=== PATIENT | male | born 1980 | race Two or more races ===

== ENCOUNTER 2021-09-23 18:29 | Emergency (ER) | payer OTHER, SELFPAY | END 2021-09-23 19:08 | disposition left against medical advice (07) | PROVIDERS: Emergency Provider Emergency Medicine | DX: N20.0 Calculus of kidney (principal) ==

== ENCOUNTER 2021-11-11 09:14 | Outpatient (REF) | payer OTHER, SELFPAY ==
[2021-11-11 09:43] LABS: MANUAL DIFF FLAG NO
[2021-11-11 10:17] LABS: Basophils Absolute Auto 0.1 X10*3/uL (0.0-0.2); Basophils Percent Auto 0.6 % (0-2); Eosinophils Absolute Auto 0.2 X10*3/uL (0.0-0.4); Eosinophils Percent Auto 2.2 % (0-4); Hematocrit 50.6 % (42.0-52.0); Hemoglobin 15.7 g/dl (14.0-18.0); Imm Gran Abs Auto 0.07 X10*3/uL (0.00-0.03); Imm Gran Pct Auto 0.8 % (0.0-0.4); Lymphocytes Absolute Auto 1.9 X10*3/uL (1.2-4.9); Lymphocytes Percent Auto 22.2 % (20-40); Mean Corpuscular Hemoglobin 25.9 pg (27.0-33.0); Mean Corpuscular Volume 83.4 fL (80.0-98.0); Mean Platelet Volume 10.9 fL (9.4-12.4); Monocytes Absolute Auto 0.4 X10*3/uL (0.1-1.2); Monocytes Percent Auto 5.2 % (2-11); Neutrophils Absolute Auto 5.8 x10*3/uL (2.0-8.3); Platelet Count 225 X10*3/uL (160-400); Red Blood Count 6.07 X10*6/uL (4.60-5.80); Red Cell Distribution Width 14.2 % (11.0-16.0); White Blood Count 8.5 X10*3/uL (4.8-10.8)
[2021-11-11 10:37] LABS: Estimated Average Glucose 309 mg/dL; Hemoglobin A1c % 12.4 %
[2021-11-11 10:46] LABS: Alanine Aminotransferase 68 U/L (0-40); Albumin Level 3.8 g/dL (3.5-5.0); Alkaline Phosphatase 120 U/L (39-117); Anion Gap 11 (12-20); Aspartate Amino Transferase 33 U/L (5-37); Bilirubin Total 0.5 mg/dL (0.0-1.0); Blood Urea Nitrogen 15 mg/dL (9-16); Calcium 9.5 mg/dL (8.4-10.2); Carbon Dioxide 27 mmol/L (22-29); Chloride 101 mmol/L (96-108); Cholesterol 138 mg/dL; Estimated Glomerular Filt Rate > 60; Glucose Random 293 mg/dL (60-115); HDL Cholesterol 38 mg/dL; LDL Cholesterol Calculated 75 mg/dl; Potassium 4.8 mmol/L (3.3-5.1); Sodium 134 mmol/L (135-145); Total Protein 7.3 g/dL (6.5-8.0); Triglycerides 126 mg/dL
[2021-11-11 12:41] LABS: Creatinine Urine 81.42 mg/dL; Microalbum/Creatinine Ratio Ur 18.4 ug/mg cr
== END 2021-11-11 09:15 | disposition home or self-care (01) ==
LOC: HO.LAB 09:14
PROVIDERS: PCP Internal Medicine; Visit Provider Internal Medicine
DX: Z00.01 Encounter for general adult medical examination with abnormal findings (principal); B37.42 Candidal balanitis; E11.65 Type 2 diabetes mellitus with hyperglycemia; E66.8 Other obesity; G47.33 Obstructive sleep apnea (adult) (pediatric); I10 Essential (primary) hypertension; N20.0 Calculus of kidney
CPT/HCPCS: 36415; 80053; 80061; 82043; 83036; 84443; 85025

== ENCOUNTER 2022-03-03 13:59 | Outpatient (REF) | payer OTHER, SELFPAY ==
--- NOTE | ~2022-03-03 | US_ITS ---
EXAMINATION: US VENOUS ULTRASOUND WITH DOPPLER LOWER EXTREMITY, RIGHT CLINICAL INFORMATION: Right lower extremity edema COMPARISON: None TECHNIQUE: Ultrasound of the deep veins is performed from the hip to the calf with compression sonography and color and pulse Doppler assessment. Spectral analysis with color-flow imaging is performed. FINDINGS: The study is somewhat limited as the GSD could not be seen and color flow in the profunda femoris was difficult to demonstrate but compression was normal. The peroneal veins were also not seen. Exam is otherwise normal with normal venous compression and respiratory variation and augmented flow. The visualized common femoral vein, superficial femoral vein, profunda femoral vein, popliteal vein, and the trifurcation region shows no evidence of deep venous thrombosis. There is no significant popliteal fossa cyst. If the patient's symptoms persist, followup ultrasound in 5 days 7 days might be of value to exclude proximal propagation from a non-visualized calf vein. US/US venous duplex LE RT IMPRESSION: Limited study as described above, but there is no evidence of DVT demonstrated in the right lower extremity.
[2022-03-03 16:15] LABS: Estimated Average Glucose 223 mg/dL; Hemoglobin A1c % 9.4 %
[2022-03-03 16:33] LABS: Alanine Aminotransferase 43 U/L (0-40); Albumin Level 3.8 g/dL (3.5-5.0); Alkaline Phosphatase 87 U/L (39-117); Anion Gap 15 (12-20); Aspartate Amino Transferase 28 U/L (5-37); Bilirubin Total 0.6 mg/dL (0.0-1.0); Blood Urea Nitrogen 11 mg/dL (9-16); Calcium 9.1 mg/dL (8.4-10.2); Carbon Dioxide 26 mmol/L (22-29); Chloride 101 mmol/L (96-108); Estimated Glomerular Filt Rate > 60; Glucose Random 165 mg/dL (60-115); Potassium 4.5 mmol/L (3.3-5.1); Sodium 137 mmol/L (135-145); Total Protein 7.4 g/dL (6.5-8.0)
== END 2022-03-03 14:00 | disposition home or self-care (01) ==
LOC: HO.US 13:59
PROVIDERS: PCP Internal Medicine; Visit Provider Internal Medicine
DX: R60.0 Localized edema (principal); E11.65 Type 2 diabetes mellitus with hyperglycemia
CPT/HCPCS: 36415; 80053; 83036; 93971

== ENCOUNTER 2022-06-09 14:11 | Outpatient (REF) | payer OTHER, SELFPAY ==
[2022-06-09 15:00] LABS: Estimated Average Glucose 157 mg/dL; Hemoglobin A1c % 7.1 %
[2022-06-09 15:01] LABS: Alanine Aminotransferase 30 U/L (0-40); Alkaline Phosphatase 81 U/L (39-117); Anion Gap 15 (12-20); Aspartate Amino Transferase 19 U/L (5-37); Bilirubin Total 0.4 mg/dL (0.0-1.0); Blood Urea Nitrogen 18 mg/dL (9-16); Carbon Dioxide 23 mmol/L (22-29); Chloride 105 mmol/L (96-108); Estimated Glomerular Filt Rate > 60; Glucose Random 126 mg/dL (60-115); Potassium 4.6 mmol/L (3.3-5.1); Sodium 138 mmol/L (135-145); Total Protein 7.5 g/dL (6.5-8.0)
== END 2022-06-09 14:12 | disposition home or self-care (01) ==
LOC: HO.LAB 14:11
PROVIDERS: PCP Internal Medicine; Visit Provider Internal Medicine
DX: E11.65 Type 2 diabetes mellitus with hyperglycemia (principal); G47.33 Obstructive sleep apnea (adult) (pediatric); I10 Essential (primary) hypertension
CPT/HCPCS: 36415; 80053; 83036

== ENCOUNTER 2022-10-09 14:32 | Outpatient (REF) | payer OTHER, SELFPAY ==
[2022-10-09 15:50] LABS: Estimated Average Glucose 169 mg/dL; Hemoglobin A1c % 7.5 %
[2022-10-09 16:18] LABS: Alanine Aminotransferase 25 U/L (0-40); Alkaline Phosphatase 92 U/L (39-117); Anion Gap 15 (12-20); Aspartate Amino Transferase 19 U/L (5-37); Bilirubin Total 0.4 mg/dL (0.0-1.0); Blood Urea Nitrogen 18 mg/dL (9-16); Calcium 9.8 mg/dL (8.4-10.2); Carbon Dioxide 25 mmol/L (22-29); Chloride 102 mmol/L (96-108); Estimated Glomerular Filt Rate > 60; Glucose Random 128 mg/dL (60-115); Potassium 4.6 mmol/L (3.3-5.1); Sodium 137 mmol/L (135-145); Total Protein 7.4 g/dL (6.5-8.0)
== END 2022-10-09 14:33 | disposition home or self-care (01) ==
LOC: HO.LAB 14:32
PROVIDERS: PCP Internal Medicine; Visit Provider Internal Medicine
DX: E11.65 Type 2 diabetes mellitus with hyperglycemia (principal); F32.2 Major depressive disorder, single episode, severe without psychotic features; G47.33 Obstructive sleep apnea (adult) (pediatric); I10 Essential (primary) hypertension; R25.2 Cramp and spasm
CPT/HCPCS: 36415; 80053; 83036

== ENCOUNTER 2022-11-03 11:20 | Outpatient (REF) | payer OTHER, SELFPAY | END 2022-11-03 11:21 | disposition home or self-care (01) | LOC: HO.HOSX 11:20 | PROVIDERS: Visit Provider Orthopaedic Surgery | DX: Z13.89 Encounter for screening for other disorder (principal) ==

== ENCOUNTER 2023-01-30 09:38 | Outpatient (REF) | payer OTHER, SELFPAY ==
[2023-01-30 10:46] LABS: Estimated Average Glucose 186 mg/dL; Hemoglobin A1c % 8.1 %
[2023-01-30 10:47] LABS: Alanine Aminotransferase 34 U/L (0-40); Albumin Level 3.9 g/dL (3.5-5.0); Alkaline Phosphatase 98 U/L (39-117); Anion Gap 15 (12-20); Aspartate Amino Transferase 16 U/L (5-37); Bilirubin Total 0.4 mg/dL (0.0-1.0); Blood Urea Nitrogen 17 mg/dL (9-16); Carbon Dioxide 23 mmol/L (22-29); Chloride 106 mmol/L (96-108); Estimated Glomerular Filt Rate > 60; Glucose Random 181 mg/dL (60-115); Potassium 4.5 mmol/L (3.3-5.1); Sodium 139 mmol/L (135-145); Total Protein 7.2 g/dL (6.5-8.0)
[2023-01-30 12:32] LABS: CT PCR NOT DETECTED (Not Detect.); NG PCR NOT DETECTED (Not Detect.)
== END 2023-01-30 09:39 | disposition home or self-care (01) ==
LOC: HO.LAB 09:38
PROVIDERS: PCP Internal Medicine; Visit Provider Internal Medicine
DX: E11.65 Type 2 diabetes mellitus with hyperglycemia (principal); F33.41 Major depressive disorder, recurrent, in partial remission; G47.33 Obstructive sleep apnea (adult) (pediatric); I10 Essential (primary) hypertension; Z20.2 Contact with and (suspected) exposure to infections with a predominantly sexual mode of transmission
CPT/HCPCS: 0353U; 80053; 83036

== ENCOUNTER 2023-05-11 10:42 | Outpatient (REF) | payer OTHER, SELFPAY ==
[2023-05-11 13:56] LABS: Estimated Average Glucose 235 mg/dL; Hemoglobin A1c % 9.8 %
[2023-05-11 14:37] LABS: Creatinine Urine 172.19 mg/dL; Microalbum/Creatinine Ratio Ur 33.1 ug/mg cr
[2023-05-12 02:35] LABS: Alanine Aminotransferase 51 U/L (0-40); Alkaline Phosphatase 112 U/L (39-117); Anion Gap 16 (12-20); Aspartate Amino Transferase 23 U/L (5-37); Bilirubin Total 0.3 mg/dL (0.0-1.0); Blood Urea Nitrogen 14 mg/dL (9-16); Calcium 9.3 mg/dL (8.4-10.2); Carbon Dioxide 24 mmol/L (22-29); Chloride 102 mmol/L (96-108); Cholesterol 132 mg/dL; Estimated Glomerular Filt Rate > 60; Glucose Random 262 mg/dL (60-115); HDL Cholesterol 37 mg/dL; LDL Cholesterol Calculated 59 mg/dl; Potassium 4.3 mmol/L (3.3-5.1); Sodium 138 mmol/L (135-145); Thyroid Stimulating Hormone 3.56 uIU/mL (0.32-4.0); Total Protein 7.9 g/dL (6.5-8.0); Triglycerides 183 mg/dL
== END 2023-05-11 10:43 | disposition home or self-care (01) ==
LOC: HO.LAB 10:42
PROVIDERS: PCP Internal Medicine; Visit Provider Internal Medicine
DX: Z00.01 Encounter for general adult medical examination with abnormal findings (principal); E11.65 Type 2 diabetes mellitus with hyperglycemia; F32.5 Major depressive disorder, single episode, in full remission; G47.33 Obstructive sleep apnea (adult) (pediatric)
CPT/HCPCS: 36415; 80053; 80061; 82043; 83036; 84443

== ENCOUNTER 2023-08-10 11:24 | Outpatient (REF) | payer OTHER, SELFPAY ==
[2023-08-10 13:32] LABS: Alanine Aminotransferase 35 U/L (0-40); Albumin Level 3.8 g/dL (3.5-5.0); Alkaline Phosphatase 98 U/L (39-117); Anion Gap 12 (12-20); Aspartate Amino Transferase 18 U/L (5-37); Bilirubin Total 0.4 mg/dL (0.0-1.0); Blood Urea Nitrogen 16 mg/dL (9-16); Calcium 9.2 mg/dL (8.4-10.2); Carbon Dioxide 28 mmol/L (22-29); Chloride 101 mmol/L (96-108); Estimated Glomerular Filt Rate > 60; Glucose Random 307 mg/dL (60-115); Potassium 4.6 mmol/L (3.3-5.1); Sodium 136 mmol/L (135-145); Total Protein 7.5 g/dL (6.5-8.0)
[2023-08-10 13:42] LABS: Estimated Average Glucose 252 mg/dL; Hemoglobin A1c % 10.4 % (<6.0)
== END 2023-08-10 11:25 | disposition home or self-care (01) ==
LOC: HO.10HDL 11:24
PROVIDERS: Visit Provider Internal Medicine
DX: E11.65 Type 2 diabetes mellitus with hyperglycemia (principal); B37.49 Other urogenital candidiasis; I10 Essential (primary) hypertension; R74.01 Elevation of levels of liver transaminase levels; R80.8 Other proteinuria; Z91.148 Patient's other noncompliance with medication regimen for other reason
CPT/HCPCS: 36415; 80053; 83036

== ENCOUNTER 2024-03-28 16:25 | Outpatient (REF) | payer OTHER, SELFPAY ==
[2024-03-28 16:41] LABS: MANUAL DIFF FLAG NO
[2024-03-28 17:22] LABS: Basophils Absolute Auto 0.1 X10*3/uL (0.0-0.2); Basophils Percent Auto 0.7 % (0-2); Eosinophils Absolute Auto 0.3 X10*3/uL (0.0-0.4); Eosinophils Percent Auto 2.2 % (0-4); Hematocrit 50.3 % (42.0-52.0); Hemoglobin 16.1 g/dl (14.0-18.0); Imm Gran Abs Auto 0.12 X10*3/uL (0.00-0.03); Imm Gran Pct Auto 1.1 % (0.0-0.4); Lymphocytes Absolute Auto 3.2 X10*3/uL (1.2-4.9); Lymphocytes Percent Auto 28.9 % (20-40); Mean Corpuscular Hemoglobin 26.3 pg (27.0-33.0); Mean Corpuscular Volume 82.2 fL (80.0-98.0); Mean Platelet Volume 11.5 fL (9.4-12.4); Monocytes Absolute Auto 0.5 X10*3/uL (0.1-1.2); Neutrophils Absolute Auto 7.1 x10*3/uL (2.0-8.3); Neutrophils Percent Auto 63.1 % (45-73); Platelet Count 247 X10*3/uL (160-400); Red Blood Count 6.12 X10*6/uL (4.60-5.80); Red Cell Distribution Width 13.7 % (11.0-16.0); White Blood Count 11.2 X10*3/uL (4.8-10.8)
[2024-03-28 18:01] LABS: Creatinine Urine 62.33 mg/dL; Microalbum/Creatinine Ratio Ur 11.2 ug/mg cr (<30)
[2024-03-28 18:02] LABS: Alanine Aminotransferase 50 U/L (0-40); Albumin Level 4.1 g/dL (3.5-5.0); Alkaline Phosphatase 111 U/L (39-117); Anion Gap 13 (12-20); Aspartate Amino Transferase 30 U/L (5-37); Bilirubin Total 0.3 mg/dL (0.0-1.0); Blood Urea Nitrogen 18 mg/dL (9-16); Calcium 10.3 mg/dL (8.4-10.2); Carbon Dioxide 29 mmol/L (22-29); Chloride 99 mmol/L (96-108); Cholesterol 133 mg/dL (<200); Estimated Glomerular Filt Rate > 60; Glucose Random 323 mg/dL (60-115); HDL Cholesterol 36 mg/dL (>40); LDL Cholesterol Calculated 36 mg/dL (<100); Potassium 4.4 mmol/L (3.3-5.1); Sodium 137 mmol/L (135-145); Triglycerides 308 mg/dL (<150)
[2024-03-29 06:26] LABS: Estimated Average Glucose 315 mg/dL; Hemoglobin A1c % 12.6 % (<6.0)
== END 2024-03-28 16:26 | disposition home or self-care (01) ==
LOC: HO.LAB 16:25
PROVIDERS: PCP Internal Medicine; Visit Provider Internal Medicine
DX: E11.65 Type 2 diabetes mellitus with hyperglycemia (principal); E78.00 Pure hypercholesterolemia, unspecified; F32.9 Major depressive disorder, single episode, unspecified; G47.33 Obstructive sleep apnea (adult) (pediatric); I10 Essential (primary) hypertension; R74.01 Elevation of levels of liver transaminase levels
CPT/HCPCS: 36415; 80053; 80061; 82043; 82570; 83036; 85025

== ENCOUNTER 2024-08-10 15:23 | Outpatient (REF) | payer OTHER, SELFPAY ==
[2024-08-10 16:12] LABS: Estimated Average Glucose 301 mg/dL; Hemoglobin A1C 450.7401 umol/L; Hemoglobin A1c % 12.1 % (<6.0); Total Hemoglobin (HGBA1C) 4141.6833 umol/L
[2024-08-10 17:05] LABS: Alanine Aminotransferase 44 U/L (0-40); Albumin Level 3.9 g/dL (3.5-5.0); Alkaline Phosphatase 136 U/L (39-117); Anion Gap 14 (12-20); Aspartate Amino Transferase 24 U/L (5-37); Bilirubin Total 0.2 mg/dL (0.0-1.0); Blood Urea Nitrogen 17 mg/dL (9-16); Calcium 9.9 mg/dL (8.4-10.2); Carbon Dioxide 26 mmol/L (22-29); Chloride 100 mmol/L (96-108); Estimated Glomerular Filt Rate > 60; Glucose Random 412 mg/dL (60-115); Potassium 4.2 mmol/L (3.3-5.1); Sodium 136 mmol/L (135-145); Total Protein 7.6 g/dL (6.5-8.0)
== END 2024-08-10 15:24 | disposition home or self-care (01) ==
LOC: HO.LAB 15:23
PROVIDERS: PCP Internal Medicine; Visit Provider Internal Medicine
DX: E11.65 Type 2 diabetes mellitus with hyperglycemia (principal); E66.01 Morbid (severe) obesity due to excess calories; G47.33 Obstructive sleep apnea (adult) (pediatric); I10 Essential (primary) hypertension
CPT/HCPCS: 36415; 80053; 83036

== ENCOUNTER 2024-11-17 16:39 | Outpatient (REF) | payer OTHER, SELFPAY ==
--- OUTSIDE RECORDS SUMMARY | 2024-11-17 16:53 | XMS_ITS | Clinical Summary ---
Author Organization [facility] Address [address] [place] [address] Care Team Providers Care Traveling Operator Name Role Phone Blanca Cordon PA-C Primary Care Provider [phone] Source Comments PLEASE NOTE, if this patient is a minor, it may be UNLAWFUL to discuss sensitive information that is contained in these records (such as FAMILY PLANNING, MENTAL HEALTH or SUBSTANCE ABUSE) with the minor patient's parent or other person without the patient's specific authorization.[facility] Allergies Active Allergy Reactions Criticality Noted Date Comments Aspirin 06/14/2015 ANGIOEDEMA Medications atenolol (TENORMIN) 25 mg tabletIndicatio ns:hypertension Take 25 mg by mouth once daily. Indications: Hypertension Active COMP.Jarrod COPELAND LONG,X-LRG (COMPRESSION STOCKING)Indica tions:Varicose vein Dx: varicose veins bilat with dermatitis and edema. Use during the day. Remove at night. Pressure 15-20mHg 2 Each 2 5 Active Active Problems Problem Noted Date Diagnosed Date Obesity 06/14/2015 Overview (06/14/2015): BMI 71.84 HTN (hypertension) 06/14/2015 Overview (06/14/2015): ATENOLOL 25 MG Sciatic nerve pain 06/14/2015 Family History Medical History Relation Name Comments Gastrointestinal Problems Brother 1 Hypertension Brother 1 Diabetes Mother 55 Other (See Comments) Mother 55 fibromy algia Cancer Other 1 cousin breast Cancer Other 2 2nd c brain ca at 5yo Cancer Paternal Aunt 1 breast Cancer Paternal Aunt 2 breast Cancer Paternal Aunt 3 breast Cancer Paternal Aunt 4 breast Relation Name Status Comments Brother 1 Alive Brother 2 Alive Daughter Alive Father 57 Alive Mother 55 Alive Other 1 cousin Other 2 2nd c Paternal Aunt 1 Paternal Aunt 2 Paternal Aunt 3 Alive Paternal Aunt 4 Alive Social History Tobacco Use Types Packs/Day Years Used Date Smoking Tobacco: Never Alcohol Use Standard Drinks/Week Comments Yes 0 (1 standard drink = 0.6 oz pur e alcohol) socc Social Connections Answer Date Recorded Social Connections and Isolation 0 05/22/2019 Financial Resource Strain Answer Date R ecorded Financial Resource Strain 0 2018 Stress Answer Date Recorded Stress 0 05/22/2019 Physical Activity Answer Date Recorded Physical Activity 0 05/22/2019 Food Insecurity Answer Date Recorded Food 0 05/22/2019 Transportation Needs Answer Date Record ed Transportation 0 05/22/2019 Housing Stability Answer Date Recorded Housing 0 05/22/2019 Safety and Environment Answer Date Donavon rded Safety 0 05/22/2019 Utilities Answer Date Recorded Utilities 0 05/22/2019 Employment Answer Date Recorded Employment 0 05/22/2019 Sex and Gender Information Value Date Recorded Sex Assigned at Not on file Legal Sex Male 5:52 AM PDT Gender Identity Not on file Sexual Orientation Not on file Last Filed Vital Signs Vital Sign Reading Time Taken Comments Blood Pressure 122/80 07/12/2015 9:04 AM EDT Pulse 68 07/12/2015 9:04 AM EDT Temperature 36.9 ??C (98.4 ??F) 07/12/2015 9:04 AM ED T Respiratory Rate 16 07/12/2015 9:04 AM EDT Oxygen Saturation - - Inhaled Oxygen Concentration - - Weight 211.9 kg (467 lb 3.2 oz) 07/12/2015 9:04 AM EDT Height 172.7 cm (5' 8 ) 07/12/2015 9:04 AM EDT Body Mass Index 71.04 07/12/2015 9:04 AM EDT Plan of Treatment Not on file Insurance [facility] PLAN Member Subscriber Plan / Payer (Ef fective 2015-Present) Name:Celso Lin Relation to Subscriber:Self Name:Celso Lin Payer ID:[id number] Group ID:Not on file Type:Medicaid Address: [facility] [address] [place] [address] Care Teams Traveling Operator Relationship Specialty Start Date End Date Blanca Cordon PA-C [address] [place] [address] PCP - General 11/23/18
--- OUTSIDE RECORDS SUMMARY | 2024-11-17 16:53 | XMS_ITS | Clinical Summary ---
[facility] Organization [facility] Address [address] [place] [address] Care Team Providers Care Apprentice Name Role Phone Rosa Swanson MD Primary Care Provider [phone] Social History Tobacco Use Types Packs/Day Years Used Date Smoking Tobacco: Never Assessed Sex and Gender Information Value Date Recorded Sex Assigned at Not on file Legal Sex Male 9:03 AM EST Gender Identity Not on file Sexual Orientation Not on file Plan of Treatment Health Maintenance Due Date Last Done Comments DTaP,Tdap,and Td Vaccines (1 - Tdap) 2001 Hepatitis B Vaccines (1 of 3 - 19+ 3-dose series) 2001 COVID-19 Vaccine (2023-2 5 season) 2024 Influenza Vaccine (#1) 2024 HIB Vaccines Aged Out No longer eligi ble based on patient's age to complete this topic HPV Vaccines Aged Out No longer eligi ble based on patient's age to complete this topic Hepatitis A Vaccines Aged Out No long er eligible based on patient's age to complete this topic IPV Vaccines Aged Out No longer eligi ble based on patient's age to complete this topic MMR Vaccines Aged Out No longer eligi ble based on patient's age to complete this topic Meningococcal ACWY Vaccine Aged Out N o longer eligible based on patient's age to complete this topic Meningococcal B Vacine Aged Out No lo nger eligible based on patient's age to complete this topic Pneumococcal Vaccine: Pediat rics (0 to 5 Years) and At-Risk Patients (6 to 64 Years) Aged Out No longer eligible b ased on patient's age to complete this topic RSV Immunization Patients Un austin 20 months Aged Out No longer eligible b ased on patient's age to complete this topic Varicella Vaccines Aged Out No longer eligible based on patient's age to complete this topic Care Teams Apprentice Relationship Specialty Start Date End Date Rosa Swanson MD [address] [place] [address] Dr Morales, [place]NA [address] PCP - General 10/14/22
[2024-11-17 17:12] LABS: Estimated Average Glucose 326 mg/dL; Hemoglobin A1C 483.3694 umol/L; Total Hemoglobin (HGBA1C) 4062.0125 umol/L
[2024-11-17 17:37] LABS: Alanine Aminotransferase 55 U/L (0-40); Albumin Level 4.1 g/dL (3.5-5.0); Alkaline Phosphatase 107 U/L (39-117); Anion Gap 12 (12-20); Aspartate Amino Transferase 34 U/L (5-37); Bilirubin Total 0.3 mg/dL (0.0-1.0); Blood Urea Nitrogen 14 mg/dL (9-16); Carbon Dioxide 27 mmol/L (22-29); Chloride 101 mmol/L (96-108); Estimated Glomerular Filt Rate > 60; Glucose Random 326 mg/dL (60-115); Potassium 4.2 mmol/L (3.3-5.1); Sodium 136 mmol/L (135-145)
== END 2024-11-17 16:40 | disposition home or self-care (01) ==
LOC: HO.LAB 16:39
PROVIDERS: PCP Internal Medicine; Visit Provider Internal Medicine
DX: E11.65 Type 2 diabetes mellitus with hyperglycemia (principal); E78.1 Pure hyperglyceridemia; I10 Essential (primary) hypertension
CPT/HCPCS: 36415; 80053; 83036

== ENCOUNTER 2025-03-07 15:31 | Outpatient (REF) | payer OTHER, SELFPAY ==
[2025-03-07 16:42] LABS: Estimated Average Glucose 260 mg/dL; Hemoglobin A1c % 10.7 % (<6.0)
[2025-03-07 17:06] LABS: Alanine Aminotransferase 33 U/L (0-40); Albumin Level 4.5 g/dL (3.5-5.0); Alkaline Phosphatase 84 U/L (39-117); Anion Gap 13 (12-20); Aspartate Amino Transferase 26 U/L (5-37); Bilirubin Total 0.2 mg/dL (0.0-1.0); Blood Urea Nitrogen 14 mg/dL (9-16); Calcium 9.5 mg/dL (8.4-10.2); Carbon Dioxide 27 mmol/L (22-29); Chloride 104 mmol/L (96-108); Cholesterol 141 mg/dL (<200); Estimated Glomerular Filt Rate > 60; Glucose Random 83 mg/dL (60-115); HDL Cholesterol 34 mg/dL (>40); LDL Cholesterol Calculated 66 mg/dL (<100); Potassium 3.7 mmol/L (3.3-5.1); Sodium 140 mmol/L (135-145); Total Protein 7.9 g/dL (6.5-8.0); Triglycerides 207 mg/dL (<150)
[2025-03-07 18:09] LABS: Creatinine Urine 183.08 mg/dL; Microalbum/Creatinine Ratio Ur 12.5 ug/mg cr (<30)
--- OUTSIDE RECORDS SUMMARY | 2025-03-07 18:37 | XMS_ITS | Clinical Summary ---
Author Organization [facility] Address [address] [place] [address] Care Team Providers Care Brick Paving Checker Name Role Phone Blanca Cordon PA-C Primary Care Provider [phone] Source Comments PLEASE NOTE, if this patient [...] Plan of Treatment Not on file Insurance [facility] PLAN Member Subscriber Plan / Payer (Ef fective 2015-Present) Name:Celso Lin Relation to Subscriber:Self Name:Celso Lin Payer ID:[id number] Group ID:Not on file Type:Medicaid Address: [facility] [address] [place] [address] Care Teams Brick Paving Checker Relationship Specialty Start Date End Date Blanca Cordon PA-C [address] [place] [address] PCP - General 11/23/18
== END 2025-03-07 15:32 | disposition home or self-care (01) ==
LOC: HO.LAB 15:31
PROVIDERS: PCP Internal Medicine; Visit Provider Internal Medicine
DX: E11.65 Type 2 diabetes mellitus with hyperglycemia (principal); G47.33 Obstructive sleep apnea (adult) (pediatric); I10 Essential (primary) hypertension; Z79.4 Long term (current) use of insulin
CPT/HCPCS: 36415; 80053; 80061; 82043; 82570; 83036; 84443

== ENCOUNTER 2025-04-06 10:48 | Emergency (ER) | payer OTHER, SELFPAY ==
--- NOTE | ~2025-04-06 | CT_ITS ---
CLINICAL HISTORY: mid abdominal pain CT abdomen and pelvis with contrast Comparison: None provided Findings: The lung bases are clear. The liver measures 20 cm in length. Liver is hypodense. 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 There is a 1 cm cyst within the right kidney. The spleen, pancreas and adrenal glands are unremarkable. There are no calcified gallstones. There is fluid distention of small bowel. Small bowel segments measure up to 4.4 cm in diameter. No obvious focal transition point. Relative decompression of the distal ileum. No colitis. Pelvic contents unremarkable. Normal appendix. The bones are intact. IMPRESSION: 1. Fluid distention and dilatation of small bowel without obvious focus of obstruction. This may be secondary to gastroenteritis, ileus or a developing obstructive process. 2. Hepatomegaly with fatty infiltration of the liver. This document has been electronically signed by: Janice Burris MD on 04/06/2025 17:37:05
[2025-04-06 11:06] VITALS: BP 105/51; PULSE 70; RESP 16; TEMP 36.6; O2SAT 96; BMI 65.8
--- NOTE | 2025-04-06 11:07 | ED_ITS ---
HPI - Abdominal Pain General Chief Complaint: Abdominal Pain Stated Complaint: abd pain Time Seen by Provider: 04/06/25 13:46 Source: patient, RN notes reviewed, old records reviewed and certified court/medical interpreter Mode of arrival: ambulatory Limitations: language barrier History of Present Illness ED Provider: Diann HPI narrative: 44-year-old male with past medical history significant for morbid obesity, diabetes presents for evaluation of abdominal pain. Patient reports his pain started 1 week ago with nausea vomiting and diarrhea. He reports that his nausea and vomiting has resolved but he continues with diarrhea and abdominal pain He denies any previous abdominal surgeries He denies any fevers, chills. His pain is described as a 5/10 and stabbing His last bowel movement was this morning and described as diarrhea. He denies any black or bloody stool Related Data Allergies Allergy/AdvReac Type Severity Reaction Status Date / Time aspirin (ASPIRIN) Allergy Unknown UNKNOWN Verified 04/06/25 11:09 aspirin Allergy Unknown anaphylaxis Uncoded 04/06/25 11:09 Review of Systems Constitutional: Denies body ache(s), Denies chills, Denies fever(s) and Denies headache(s) Eyes: Denies blurry vision Denies dizziness, Denies dry mouth and Denies headache(s) Cardiovascular: Denies chest pain and Denies dyspnea on exertion Respiratory: Denies cough and Denies dyspnea on exertion Gastrointestinal: Reports abdominal pain, Reports nausea and Reports vomiting Genitourinary: Denies flank pain Musculoskeletal: Denies back pain Denies dizziness and Denies headache(s) PMFSH Social History Social History Alcohol intake: current Smoked in Last 30 Days: No Use of substances other than those prescribed or required for medical reasons: No Advance Directives: No Advance Directives Information Provided: Yes Do you have a plan to hurt others: No Plan Physical Exam ED Vital Signs: Vital Signs - 24 hr 04/06/25 11:06 04/06/25 13:44 04/06/25 16:41 Temperature 97.9 F 97.9 F 97.9 F Pulse Rate 70 70 61 Respiratory Rate 16 18 18 Blood Pressure 105/51 L 121/71 100/51 L Pulse Oximetry 96 96 98 Oxygen Delivery Method Room Air Room Air Room Air BMI result Body Mass Index 65.8 Const General: healthy appearing, comfortable, no acute distress, alert and awake Nutritional Appearance: well nourished Orientation/consciousness: patient oriented x3 [facility] Head: Yes normocephalic and Yes atraumatic Eyes Eyelids: Yes eyelids normal Conjunctivae: conjunctivae normal Sclerae: sclerae normal Corneas: corneas normal Pupils: Equal, round and reactive pupils present EOM: EOMs intact bilaterally Neck Neck: Yes full ROM Resp Effort & Inspection: normal respiratory effort, able to speak in complete sentences and not labored GI Other: Morbidly obese abdomen which is somewhat limiting exam Inspection: No distended and Yes obesity Palpation (GI): Soft to palpation, not firm, Tenderness to palpation present (GI) in the epigastrum and in the LUQ, no guarding and not rigid Neuro General: patient oriented x3 Cranial nerves: Yes Equal, round and reactive pupils present and Yes Bilaterally intact EOM present Cognition (Neuro): normal cognition Extrem Other: Moving all extremities well without any obvious deformities Course Course Course Narrative: This is an RME: Additional HPI, ROS, PE not included below will be deferred to primary provider. RME assessment and note performed by: Ludmila Calabrese PA-C This is a 51-ljgo-tyc-Ecuadorean speaking male, no known medical problems, who presents to the ER with complaints of abdominal pain, nausea, vomiting, and diarrhea x 1 week. Reporting diffuse abdominal pain. Symptoms have improved, however reports abdominal pain especially after eating. No urinary symptoms. No abdominal surgeries. No bloody or black stool. No hemoptysis. No CP or SOB. Abd is soft with ttp in the upper quadrants. No rebound or guarding. Plan: Labs, UA, further ER eval needed. Reevaluation(s) Reevaluation #1: Patient's CT scan shows fluid distention and dilatation of the small bowel without obvious obstruction. This may be secondary to gastroenteritis, ileus or a developing obstructive process. Given that the patient reports his symptoms are improving, his nausea and vomiting has resolved in his pain is down to a 1 or a 2 I think this is less likely to be a developing obstructive process. The patient reports he has never had any previous abdominal surgeries again making obstruction less likely. I think it is more likely that the patient's symptoms are related to gastroenteritis and possibly ileus related to that. Using the language interpreter I discussed all this with the patient and encouraged him to have a liquid diet for the next 1-2 days and advance as tolerated. If he is unable to tolerate any fluids or develops worsening abdominal pain he should return to the emergency department Time: 17:57 Medical Decision Making Medical Decision Making [facility] Narrative: 44-year-old male past medical history as above presents for evaluation of abdominal pain and diarrhea. He did have some nausea and vomiting which has since resolved. He has no chest pain but given his diabetes and significant obesity we will get an EKG and a troponin for his epigastric abdominal pain. He has a mild leukocytosis of 14.8 with a left shift. This could be reactive but also could be due to infectious process, we will get a CT scan to better evaluate. His pain is mostly epigastric and left upper, less likely biliary disease. His total bilirubin is normal at 0.5 and he has a slight ALT elevation of 66. He has no lower abdominal pain to suggest acute appendicitis. Differential Diagnosis Differential Diagnoses: The differential diagnosis associated with the presentation includes Abdominal pain Constipation Enteritis Colitis Diverticulitis Pancreatitis Cholelithiasis Acute cholecystitis Admission/Observation Consideration of admission/observation: Escalation of care including admission/observation considered Consider observation for bowel obstruction but this is favored to be less likely Lab Data [facility] Lab Attestation statement: I reviewed the patient's lab results. As above 04/06/25 11:33 04/06/25 11:33 Labs: Lab Results 04/06/25 04/06/25 04/06/25 Range/Units 11:33 11:34 14:43 WBC 14.8 H (4.8-10.8) X10*3/uL RBC 5.79 (4.60-5.80) X10*6/uL Hgb 15.6 (14.0-18.0) g/dl Hct 46.3 (42.0-52.0) % MCV 80.0 (80.0-98.0) fL MCH 26.9 L (27.0-33.0) pg MCHC 33.7 (31.0-36.0) g/dl RDW 13.2 (11.0-16.0) % Plt Count 257 (160-400) X10*3/uL MPV 10.6 (9.4-12.4) fL Immature Gran % (Auto) 0.7 H (0.0-0.4) % Neut % (Auto) 79.9 H (45-73) % Lymph % (Auto) 13.9 L (20-40) % [place] % (Auto) 4.5 (2-11) % Eos % (Auto) 0.5 (0-4) % Baso % (Auto) 0.5 (0-2) % Lymph # (Auto) 2.1 (1.2-4.9) X10*3/uL [place] # (Auto) 0.7 (0.1-1.2) X10*3/uL Eos # (Auto) 0.1 (0.0-0.4) X10*3/uL Baso # (Auto) 0.1 (0.0-0.2) X10*3/uL Abs Immat Gran (auto) 0.11 H (0.00-0.03) X10*3/uL Absolute Neuts (auto) 11.8 H (2.0-8.3) x10*3/uL Absolute Nucleated RBC 0.000 (0.0-0.012) X10*3/uL Nucleated RBC % (auto) 0.0 (0.0-0.2) /100WBC Sodium 134 L (135-145) mmol/L Potassium 3.8 (3.3-5.1) mmol/L Chloride 100 (96-108) mmol/L Carbon Dioxide 28 (22-29) mmol/L Anion Gap 10 L (12-20) BUN 8 L (9-16) mg/dL Creatinine 0.71 (0.5-1.4) mg/dL Estim Creat Clear Calc 236.3 Estimated GFR > 60 Random Glucose 252 H (60-115) mg/dL Calcium 9.0 (8.4-10.2) mg/dL Magnesium 1.7 (1.6-2.6) mg/dL Total Bilirubin 0.5 (0.0-1.0) mg/dL Direct Bilirubin 0.3 (0.0-0.5) mg/dL AST 29 (5-37) U/L ALT 66 H (0-40) U/L Alkaline Phosphatase 93 (39-117) U/L Troponin I High Sens < 2.7 (<3.5-35.0) ng/L Total Protein 7.3 (6.5-8.0) g/dL Albumin 4.2 (3.5-5.0) g/dL Lipase 58 (8-78) U/L Urine Color Dark Yellow Urine Appearance Clear Urine pH 6.0 (5.0-9.0) Ur Specific Odum >= 1.030 H (1.005-1.025) Urine Protein 30 (1+) H (Neg-Trace) mg/dL Urine Glucose (UA) >=1000 H (Negative) mg/dL Urine Ketones 15 (Negative) mg/dL Urine Blood Negative (Negative) Urine Nitrite Negative (Negative) Ur Leukocyte Esterase Trace H (Negative) Urine RBC 0-2 (0-2) /HPF Urine WBC 21-50 H (0-5) /HPF Ur Squamous Epith Cells 6-10 (0-2) /HPF Urine Bacteria None Seen (None Seen) Hyaline Casts 11-20 (0-2) /LPF WBC Casts Present Influenza Type A (PCR) NEGATIVE (Negative) Influenza Type B (PCR) NEGATIVE (Negative) RSV RNA Qual (PCR) NEGATIVE (Negative) SARS-CoV-2 RNA (RT-PCR) NEGATIVE (Negative) Radiology Impression Discussion of test interpretation with radiology: I have reviewed the radiologist's reading. Radiologist Impression: Findings: The lung bases are clear. The liver measures 20 cm in length. Liver is hypodense. 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 There is a 1 cm cyst within the right kidney. The spleen, pancreas and adrenal glands are unremarkable. There are no calcified gallstones. There is fluid distention of small bowel. Small bowel segments measure up to 4.4 cm in diameter. No obvious focal transition point. Relative decompression of the distal ileum. No colitis. Pelvic contents unremarkable. Normal appendix. The bones are intact. IMPRESSION: 1. Fluid distention and dilatation of small bowel without obvious focus of obstruction. This may be secondary to gastroenteritis, ileus or a developing obstructive process. 2. Hepatomegaly with fatty infiltration of the liver. This document has been electronically signed by: Janice Burris MD on 04/06/2025 17:37:05 Medications Administered Discontinued Medications Generic Name Dose Route Start Last Admin Trade Name Freq PRN Reason Stop Dose Admin Sodium Chloride 1,000 mls @ 999 mls/hr 04/06/25 14:15 04/06/25 15:14 Ns IV 04/06/25 15:15 Infused .Q1H1M MACK Infusion Iohexol 100 ml 04/06/25 16:26 04/06/25 16:26 Iohexol 350 Mg/Ml 100 Ml Infus..Btl IV 04/06/25 16:27 100 ml ONCE ONE Administration Ketorolac Tromethamine 30 mg 04/06/25 14:05 04/06/25 14:14 Ketorolac Tromethamine 30 Mg/Ml Vial IVPUSH 04/06/25 14:06 30 mg ONCE ONE Administration Discharge Plan Discharge Clinical Impression: Abdominal pain Patient Disposition: Home, Self-Care Instructions: Abdominal Pain (ED) Additional Instructions: Your workup today was reassuring. Your CT scan shows what looks to be a stomach virus called gastroenteritis. I recommend a liquid diet for the next 1-2 days and advance as tolerated If you develop severe or worsening abdominal pain or you are unable to eat or drink anything due to nausea/vomiting, return to the emergency department Otherwise you may follow up with your primary doctor Print Language: Ecuadorean
[2025-04-06 11:40] LABS: MANUAL DIFF FLAG NO
[2025-04-06 11:41] LABS: Hematocrit 46.3 % (42.0-52.0); Hemoglobin 15.6 g/dl (14.0-18.0); Imm Gran Abs Auto 0.11 X10*3/uL (0.00-0.03); Imm Gran Pct Auto 0.7 % (0.0-0.4); Lymphocytes Absolute Auto 2.1 X10*3/uL (1.2-4.9); Mean Corpuscular HGB Conc 33.7 g/dl (31.0-36.0); Mean Corpuscular Hemoglobin 26.9 pg (27.0-33.0); Mean Corpuscular Volume 80.0 fL (80.0-98.0); NRBC Abs Auto 0.000 X10*3/uL (0.0-0.012); NRBC Pct Auto 0.0 /100WBC (0.0-0.2); Platelet Count 257 X10*3/uL (160-400); Red Blood Count 5.79 X10*6/uL (4.60-5.80); White Blood Count 14.8 X10*3/uL (4.8-10.8)
[2025-04-06 11:43] LABS: Appearance Urine Clear; Glucose Urine UA >=1000 mg/dL (Negative); PH 6.0 (5.0-9.0); Specific Gravity - Urine >= 1.030 (1.005-1.025); UMIC TRIGGER UACC YES
[2025-04-06 12:00] LABS: Alanine Aminotransferase 66 U/L (0-40); Albumin Level 4.2 g/dL (3.5-5.0); Alkaline Phosphatase 93 U/L (39-117); Anion Gap 10 (12-20); Aspartate Amino Transferase 29 U/L (5-37); Blood Urea Nitrogen 8 mg/dL (9-16); Calcium 9.0 mg/dL (8.4-10.2); Carbon Dioxide 28 mmol/L (22-29); Chloride 100 mmol/L (96-108); Creatinine Clr Calc Pharmacy 236.3; Estimated Glomerular Filt Rate > 60; Lipase 58 U/L (8-78); Magnesium 1.7 mg/dL (1.6-2.6); Potassium 3.8 mmol/L (3.3-5.1); Sodium 134 mmol/L (135-145); Total Protein 7.3 g/dL (6.5-8.0)
[2025-04-06 12:19] LABS: Resp Syncy Virus RNA Qual PCR NEGATIVE (Negative); SARS COV2 PCR INHOUSE NEGATIVE (Negative)
[2025-04-06 12:28] LABS: UACC Culture Trigger YES
[2025-04-06 13:44] VITALS: BP 121/71; PULSE 70; RESP 18; TEMP 36.6; O2SAT 96
--- OUTSIDE RECORDS SUMMARY | 2025-04-06 13:59 | XMS_ITS | Clinical Summary ---
Author Organization [facility] Address [address] [place] [address] Care Team Providers Care Precision Lens Technician Name Role Phone Rosa Swanson MD Primary Care Provider [phone] Social History Tobacco Use Types Packs/Day Years [...] (2023-2 5 season) 2024 Influenza Vaccine (#1) 2025 HIB Vaccines Aged Out No longer eligi [...] age to complete this topic Meningococcal B Vaccine Aged Out No l onger eligible based on patient's age to complete this topic Pneumococcal Vaccine: Pediat rics (0 to 5 Years) and At-Risk Patients (6 to 49 Years) Aged Out No longer eligible b ased on patient's age to complete this topic RSV Immunization Patients Un austin 20 months Aged Out No longer eligible b ased on patient's age to complete this topic Varicella Vaccines Aged Out No longer eligible based on patient's age to complete this topic Care Teams Precision Lens Technician Relationship Specialty Start Date End Date Rosa Swanson MD [address] [place] [address] Dr Morales, [place] [address] PCP - General 10/14/22
--- OUTSIDE RECORDS SUMMARY | 2025-04-06 13:59 | XMS_ITS | Clinical Summary ---
Author Organization [facility] Address [address] [place] [address] Care Team Providers Care Mixer Crane Operator Name Role Phone Blanca Cordon PA-C Primary Care Provider [phone] Source Comments PLEASE NOTE, if this patient [...] 68 07/12/2015 9:04 AM EDT Temperature 36.9 C (98.4 F) 07/12/2015 9:04 AM EDT Respiratory Rate 16 07/12/2015 9:04 AM EDT Oxygen Saturation - - Inhaled Oxygen Concentration - - Weight 211.9 kg (467 lb 3.2 oz) 07/12/2015 9:04 AM EDT Height 172.7 cm (5' 8 ) 07/12/2015 9:04 AM EDT Body Mass Index 71.04 07/12/2015 9:04 AM EDT Plan of Treatment Not on file Insurance [facility] PLAN Member Subscriber Plan / Payer (Ef fective 2015-Present) Name:Celso Lin Relation to Subscriber:Self Name:Celso Lin Payer ID:[id number] Group ID:Not on file Type:Medicaid Address: [facility] [address] [place] [address] Care Teams Mixer Crane Operator Relationship Specialty Start Date End Date Blanca Cordon PA-C [address] [place] [address] PCP - General 11/23/18
--- NOTE | 2025-04-06 14:16 | ECG_ITS ---
Test Reason : PAIN Blood Pressure : */* mmHG Vent. Rate : 68 BPM Atrial Rate : 68 BPM P-R Int : 156 ms QRS Dur : 100 ms QT Int : 370 ms P-R-T Axes : 26 42 36 degrees QTcB Int : 393 ms Normal sinus rhythm Nonspecific T wave abnormality Abnormal ECG No previous ECGs available Referred By: Dejon Tidwell Electronically Signed By: Obed Venegas
[2025-04-06 15:08] LABS: Troponin-I High Sensitivity < 2.7 ng/L (<3.5-35.0)
[2025-04-06] MEDS: iohexoL 350 MG/ML 100 ML INFUS..BTL IV (16:26)
[2025-04-06 16:41] VITALS: BP 100/51; PULSE 61; RESP 18; TEMP 36.6; O2SAT 98
[2025-04-06 18:07] VITALS: BP 117/68; PULSE 69; RESP 18; O2SAT 98
[2025-04-06 18:10] VITALS: BP 117/68; PULSE 69; RESP 18; TEMP -17.7; TEMP 0; O2SAT 98
== END 2025-04-06 18:12 | disposition home or self-care (01) ==
PROVIDERS: Physician Assistant; Physician Assistant Medical; Emergency Provider Emergency Medicine; PCP Internal Medicine
DX: R10.9 Unspecified abdominal pain (principal); E11.8 Type 2 diabetes mellitus with unspecified complications; R11.2 Nausea with vomiting, unspecified; R19.7 Diarrhea, unspecified
CPT/HCPCS: 36415; 74177; 80048; 80076; 81001; 83690; 83735; 84484; 85025; 87086; 87637; 93005; 96361; 96374; 99284; 99285; J1885; Q9967

== ENCOUNTER → 2025-04-06 14:05 | Outpatient (BNV) | payer OTHER, SELFPAY | PROVIDERS: Emergency Provider Emergency Medicine; PCP Internal Medicine; Visit Provider Radiology Diagnostic Radiology | DX: K76.0 Fatty (change of) liver, not elsewhere classified (principal); R16.0 Hepatomegaly, not elsewhere classified; K56.609 Unspecified intestinal obstruction, unspecified as to partial versus complete obstruction | CPT/HCPCS: 74177 ==

== ENCOUNTER → 2025-04-06 14:16 | Outpatient (BNV) | payer OTHER, SELFPAY | PROVIDERS: Emergency Provider Emergency Medicine; PCP Internal Medicine; Visit Provider Internal Medicine Cardiovascular Disease | DX: R94.31 Abnormal electrocardiogram [ECG] [EKG] (principal); R10.9 Unspecified abdominal pain | CPT/HCPCS: 93010 ==

== ENCOUNTER 2025-07-25 13:39 | Outpatient (REF) | payer OTHER, SELFPAY ==
[2025-07-25 15:09] LABS: Alanine Aminotransferase 37 U/L (0-40); Albumin Level 4.2 g/dL (3.5-5.0); Alkaline Phosphatase 98 U/L (39-117); Anion Gap 12 (12-20); Aspartate Amino Transferase 22 U/L (5-37); Blood Urea Nitrogen 13 mg/dL (9-16); Calcium 9.7 mg/dL (8.4-10.2); Carbon Dioxide 30 mmol/L (22-29); Chloride 100 mmol/L (96-108); Estimated Glomerular Filt Rate > 60; Potassium 4.3 mmol/L (3.3-5.1); Sodium 138 mmol/L (135-145); Total Protein 7.4 g/dL (6.5-8.0)
== END 2025-07-25 13:40 | disposition home or self-care (01) ==
LOC: HO.LAB 13:39
PROVIDERS: PCP Internal Medicine; Visit Provider Internal Medicine
DX: E11.649 Type 2 diabetes mellitus with hypoglycemia without coma (principal); E78.00 Pure hypercholesterolemia, unspecified; I10 Essential (primary) hypertension; R80.8 Other proteinuria
CPT/HCPCS: 36415; 80053; 83036